=== PATIENT | male | born 1995 | race Caucasian/White ===

== ENCOUNTER 2018-09-11 18:39 | Emergency (ER) | payer BC, MEDICAID ==
[~2018-09-11] VITALS: Ht 180.3 cm; Wt 159.1 kg
[2018-09-11 18:55] VITALS: BP 138/80
== END 2018-09-11 21:01 | disposition home or self-care (01) ==
LOC: ER 18:39
DX: R68.89 Other general symptoms and signs (principal)
CPT/HCPCS: 99281